=== PATIENT | male | born 1975 | race Caucasian/White ===

== ENCOUNTER 2017-12-07 13:34 | Emergency (ER) | payer SELFPAY ==
[~2017-12-07] VITALS: Ht 170.2 cm; Wt 70.0 kg
[2017-12-07 14:08] VITALS: BP 129/58
[2017-12-07] MEDS ORDERED: OXYC-100 PO (14:14)
[2017-12-07] MEDS ORDERED: WARF1TAB46 PO (14:14)
== END 2017-12-07 16:44 | disposition home or self-care (01) ==
LOC: ER 16:41
DX: Z76.0 Encounter for issue of repeat prescription (principal); Z87.81 Personal history of (healed) traumatic fracture
CPT/HCPCS: 99283